=== PATIENT | female | born 1975 | race Caucasian/White ===

== ENCOUNTER 2025-03-18 12:27 | Emergency (ER) | payer OTHER, SELFPAY ==
[2025-03-18 12:34] VITALS: BP 127/78
[2025-03-18 12:56] LABS: % Basophils 0.4 % (0-2); % Eosinophils 0.3 % (0-6); % Immature Granulocytes 0.3 % (0-0.5); % Lymphocytes 25.9 % (20.5-51.1); % Monocytes 2.9 % (1.7-9.3); % Neutrophils 70.2 % (42.2-75.2); Absolute Lymphocytes 2.9 10^3/uL (1.2-3.4); Absolute Monocytes 0.3 10^3/uL (0.1-0.6); Absolute Neutrophils 7.9 10^3/uL (1.4-6.5); Hematocrit 40.8 % (37.0-47.0); Hemoglobin 14.3 g/dL (12.0-16.0); Mean Corpuscular Hgb 32.4 pg (27.0-31.0); Mean Corpuscular Volume 92.5 fL (81.0-99.0); Mean Platelet Volume 9.7 fL (7.4-10.4); Nucleated Red Blood Cells % 0 %; Platelet Count 254 10^3/uL (130-400); Red Blood Cell Count 4.41 10^6/uL (4.20-5.40); Red Cell Dist. Width 12.5 % (11.5-14.5); White Blood Cell Count 11.2 10^3/uL (4.8-10.8)
[2025-03-18 13:06] LABS: Urine Albumin Negative (Neg - Trace); Urine Bilirubin Negative (Negative); Urine Character Clear (Clear); Urine Color Yellow; Urine Glucose 1+ (Negative); Urine Ketone 1+ (Negative); Urine Leukocyte Negative (Negative); Urine Nitrite Negative (Negative); Urine Occult Blood Negative (Negative); Urine Urobilinogen Negative (Neg - 1+)
[2025-03-18 13:20] LABS: Amphetamines Negative (Negative); Barbiturates Negative (Negative); Benzodiazepines Negative (Negative); Buprenorphine Negative (Negative); Cocaine Negative (Negative); Marijuana Negative (Negative); Methadone Negative (Negative); Methamphetamines Negative (Negative); Opiates Negative (Negative); Phencyclidine Negative (Negative); Tricyclic Antidepressants Negative (Negative)
[2025-03-18 13:31] LABS: ALT (SGPT) 12 U/L (0-35); AST (SGOT) 17 U/L (14-36); Albumin 4.4 g/dl (3.5-5.0); Alkaline Phosphatase 54 U/L (38-126); Blood Urea Nitrogen 7 mg/dl (7-17); Calcium 9.3 mg/dl (8.4-10.2); Carbon Dioxide 23 mmol/L (22-30); Chloride 106 mmol/L (98-107); Glucose 192 mg/dl (70-99); Potassium 4.6 mmol/L (3.5-5.1); Sodium 136 mmol/L (135-145); Total Bilirubin 0.5 mg/dl (0.2-1.3); Total Protein 6.4 g/dl (6.3-8.2); eGFR > 60.00
--- NOTE | 2025-03-18 17:06 | ED.GENMED ---
History of Present Illness
General
Chief Complaint: Psychiatric Problem
Source: patient
Exam Limitations: altered mental status
Time Seen by Provider: 03/18/25 15:54
History of Present Illness
History of Present Illness:
49-year-old female from her residential psychiatric facility brought in by her therapist for placement into an inpatient psychiatric facility patient is apparently been acting not sleeping, here she thinks is 2021 or 2022 she states she is at
[place] tells me she is not taking her meds, denies suicidal thoughts, she is cooperative
Triage note states she has worsening catatonia
Past History
Past History
ED Past Medical History: Psychiatric
Social History
Tobacco: Smoker
Alcohol: None
Drug: None
Living: other (Facility)
Employment: Not employed
Review of Systems
Review of Systems
All Other Systems: Not applicable
Constitutional: Reports sleep disturbance; Denies fever
EENT: Reports no symptoms
Respiratory: Reports no symptoms
Cardiac: Reports no symptoms
ABD/GI: Reports no symptoms
Phy Exam
Physical Exam
Physical Exam:
Physical Exam
General: no apparent distress, not acutely ill
Neck: No jaundice
Heart: s1/s2 regular rate and rhythm, no murmur. equal radial pulses.
Lungs: no acute respiratory distress. clear bilaterally
Abdomen: Nontender
Neuro: Oriented to person unclear of the date thinks is 2022, thinks she is at [place]
Skin: no rash
Psychiatric: Flat affect cooperative
Extremities: no edema.
Course
Orders/Labs/Results
Orders:
Orders
03/18/25 12:47
Complete Blood Count/With Diff Urgent
Comprehensive Metabolic Panel Urgent
TSH Urgent
Comment: ADD ON
03/18/25 12:54
Urinalysis Reflex To Culture Urgent
Date Specimen was Collected: 03/18/25
Time Specimen was Collected: 12:41
Urine Drug Abuse Screen Urgent
Date Specimen was Collected: 03/18/25
Time Specimen was Collected: 12:41
03/18/25 16:29
Crisis Consult Urgent
Reason for Consult: needs admissoin
03/18/25 16:53
Add On- LAB Urgent
Tests Added?: tsh
Abnormal Lab Results
03/18/25 03/18/25
12:47 12:54
WBC 11.2 H 10^3/uL
(4.8-10.8)
MCH 32.4 H pg
(27.0-31.0)
Absolute Neuts (auto) 7.9 H 10^3/uL
(1.4-6.5)
Glucose 192 H mg/dl
(70-99)
Urine Ketones 1+ A
(Negative)
Urine Glucose 1+ A
(Negative)
03/18/25 12:47
03/18/25 12:47
Vital Signs
Initial and Last Documented VS:
Initial Vital Signs
Temp Pulse Resp BP Pulse Ox
98.0 F 82 16 127/78 98
03/18/25 12:34 03/18/25 12:34 03/18/25 12:34 03/18/25 12:34 03/18/25 12:34
Last Documented Vital Signs
Temp Pulse Resp BP Pulse Ox
98.0 F 82 16 127/78 98
03/18/25 12:34 03/18/25 12:34 03/18/25 12:34 03/18/25 12:34 03/18/25 12:34
MDM/Problems Addressed
Differential Diagnosis Includes:
Psychosis noncompliance electrolyte abnormality thyroid issue
MDM/Problems Addressed:
Psychiatric issue
Chronic conditions affecting care:
Psychiatric issue
Acute Exacerbation and/or Progression of Chronic Illness:
Psychiatric issues
*Pulse Oximetry
Patient hypoxic: no
Comment: 99
*Critical Care Note
Total Time (30-74mins, 75-104mins- exclusive of procedures): Not Applicable
Update Note
Update Note:
Update will check labs including thyroid crisis evaluation
Reviewed with crisis does not appear to be any issue requiring inpatient psychiatric care, she is in a controlled setting, Teri from crisis called the facility no one there will do with 302-somewhat of correction from the triage note
ED Attending Note
-
Portions of this chart may have been created with voice recognition software.� Occasional wrong word or��sound alike� substitutions may have occurred due to the inherent limitations of voice recognition software.
Discharge Plan
Departure
Patient Disposition: Home (Routine Discharge)
Date of Disposition: 03/18/25
Time of Disposition: 18:06
Patient with high blood pressure during this ER visit?: No
Condition: Good
Covid-19: Not Applicable
Discharge Problem:
Catatonia
Instructions: Depression in adults
Referrals:
Nas Jimenez DO [Family Provider, Internal Medicine]
Interventions
Interventions:
*Risk Screen - Suicide Last Done: 03/18/25 12:28
*Neglect/Abuse Screening Last Done: 03/18/25 12:34
Discharge Date and Time
Print Language: YI
== END 2025-03-18 18:38 | disposition home or self-care (01) ==
LOC: EMR 12:27
PROVIDERS: Student in an Organized Health Care Education/Training Program; EMERGENCY PHYSICIAN Emergency Medicine; FAMILY PHYSICIAN Internal Medicine Geriatric Medicine
DX: F06.1 Catatonic disorder due to known physiological condition (principal); F17.200 Nicotine dependence, unspecified, uncomplicated
CPT/HCPCS: 99283; 80053; 80306; 81003; 84443; 85025

== ENCOUNTER 2025-03-22 17:58 | Emergency (ER) | payer OTHER, SELFPAY ==
[2025-03-22 18:04] VITALS: BP 114/76
--- NOTE | 2025-03-22 18:37 | ED.GENMED ---
History of Present Illness
General
Chief Complaint: Crisis Evaluation
Time Seen by Provider: 03/22/25 18:37
History of Present Illness
History of Present Illness:
REVIEW OF OLD RECORDS
- The patient was seen here in the emergency department 03/18/2025 and on 03/20/2025 the patient was seen by crisis. She has a history of Warnicke's encephalopathy and has had a right-sided craniotomy possibly related to aneurysm in the past. At that
time, the patient denied SI/HI/self-harm. She was here with catatonia. Ultimately staff at [facility] declined to file a 302.
Note:
CHIEF COMPLAINT(S)
Confusion and possible dehydration.
HISTORY OF PRESENT ILLNESS
The patient is a 49-year-old female who presented to the emergency department with confusion and anxiety. The patient does not recall being in the hospital previously, suggesting a potential lapse in memory or awareness. According to the patient,
she is feeling more anxious since being in the hospital. She arrived at the emergency department via ambulance from a care facility called [facility], located in [place]. The initial concern for her visit was dehydration, as communicated by the
facility. There is an indication of inadequate oral intake as the patient has not been eating or drinking adequately at the facility. The patient is currently unable to accurately state the month or time of day.
At 6:40 PM I called the nurse at [facility] at [phone]. There was concern for 'very confused, not eating, refused to eat or drink, she looked dehydrated'. They also asked me to call her legal guardian, Jay,
At 6:50 PM Jay tells me that she has been deemed incapacitated by the state due to history of ruptured aneurysm, other than depression, there was no definite psychiatric illness after the aneurysm, she also has a history of alcoholism. He also
states that she has been very actively trying to get out of the [facility] but he is clear that she is not capable of being on her own.
ADDITIONAL HISTORY OBTAINED FROM SOURCES OTHER THAN THE PATIENT
Per the care facility ([facility]) where the patient resides, they called the ambulance due to concerns of dehydration. The facility reported that the patient has not been eating or drinking well.
PHYSICAL EXAM
- General: Bizarre affect
- HEENT: Moist oral mucosa
- Cardiovascular: No murmurs, normal heart rate, regular rhythm, No chest wall tenderness
- Pulmonary: No respiratory distress, breath sounds are clear and equal
- Abdomen: Soft with no peritoneal signs, no tenderness
- Neurologic: Excellent strength all extremities, no coordination deficits
- Psychiatric: Bizarre and flat affect, she attempts to get out of the room, she thinks she is at a hospital but could not identify [place], she knows it is March, she accurately stated that it was afternoon
- Extremities: Nontender, no edema, moves all extremities equally
- Skin: No rash, no lesions
PROBLEM LIST
Acute:
- Confusion
- Anxiety
- Dehydration
PLAN
- Consider laboratory tests to assess electrolytes and hydration status.
- Evaluate the patients nutritional intake and ability to hydrate at the care facility.
- Monitor anxiety levels and address accordingly.
DIFFERENTIAL DIAGNOSIS
The Differential Diagnosis includes, in no particular order and is not limited to:
- Dehydration
- Electrolyte imbalance
- Acute confusional state
- Anxiety disorder
- Medication side effects
- Sleep deprivation
- Nutritional deficiencies
- Infection (e.g., urinary tract infection, pneumonia)
- Stroke or transient ischemic attack
- Dementia or other neurocognitive disorders
RADIOLOGY
- Not indicated
EKG
- Not indicated
LABS
- White count 11.7, hemoglobin 14.7, BUN is 4, creatinine 0.6, UDS and urinalysis negative
UPDATE
- The patient initially pulled out an IV but then received IV fluids.
03/22/25 - 20:17
Blood work indicates good kidney function, though there is a slight increase in white blood cell count, (patient states 'possibly explained by congestion'). No clear sign of dehydration based on lab results. Further coordination with [place]
[facility] residential facility is underway, with legal guardian Don confirming necessity for assistance in decision-making.
Past History
Past History
ED Past Medical History: Psychiatric
Social History
Tobacco: Smoker
Alcohol: None
Drug: None
Living: other (Facility)
Employment: Not employed
Phy Exam
Physical Exam
Physical Exam:
See HPI
Course
Orders/Labs/Results
Orders:
Orders
03/22/25 18:35
Urinalysis Urgent
Date Specimen was Collected: 03/22/25
Time Specimen was Collected: 18:31
Urine Drug Abuse Screen Urgent
Date Specimen was Collected: 03/22/25
Time Specimen was Collected: 18:31
03/22/25 18:39
Crisis Consult Urgent
Reason for Consult: not eating
03/22/25 18:54
0.9% Sodium Chloride 1000 ml [Nss] 1,000 ml IV BOLUS
03/22/25 19:19
Complete Blood Count/With Diff Urgent
Comprehensive Metabolic Panel Urgent
03/22/25 19:22
Lorazepam [Ativan] 0.5 mg IV NOW STA
Abnormal Lab Results
03/22/25
19:19
WBC 11.7 H 10^3/uL
(4.8-10.8)
MCH 32.7 H pg
(27.0-31.0)
Abs Immat Gran (auto) 0.1 H 10^3/uL
(0-0.05)
Absolute Neuts (auto) 7.8 H 10^3/uL
(1.4-6.5)
BUN 4 L mg/dl
(7-17)
Calcium 10.4 H mg/dl
(8.4-10.2)
03/22/25 19:19
03/22/25 19:19
Vital Signs
Initial and Last Documented VS:
Initial Vital Signs
Temp Pulse Resp BP Pulse Ox
36.6 C 87 16 114/76 98
03/22/25 18:04 03/22/25 18:04 03/22/25 18:04 03/22/25 18:04 03/22/25 18:04
Last Documented Vital Signs
Temp Pulse Resp BP Pulse Ox
36.6 C 87 16 114/76 98
03/22/25 18:04 03/22/25 18:04 03/22/25 18:04 03/22/25 18:04 03/22/25 18:04
*Critical Care Note
Total Time (30-74mins, 75-104mins- exclusive of procedures): Not Applicable
ED Attending Note
-
Portions of this chart may have been created with voice recognition software.� Occasional wrong word or��sound alike� substitutions may have occurred due to the inherent limitations of voice recognition software.
Discharge Plan
Interventions
Interventions:
*Risk Screen - Suicide Last Done: 03/22/25 18:05
Discharge Date and Time
Print Language: SAMOAN
[2025-03-22 18:51] LABS: Urine Albumin Negative (Neg - Trace); Urine Bilirubin Negative (Negative); Urine Character Slightly Cloudy (Clear); Urine Color Yellow; Urine Glucose Negative (Negative); Urine Ketone Negative (Negative); Urine Leukocyte Negative (Negative); Urine Nitrite Negative (Negative); Urine Occult Blood Negative (Negative); Urine Urobilinogen Negative (Neg - 1+)
[2025-03-22 18:57] LABS: Amphetamines Negative (Negative); Barbiturates Negative (Negative); Benzodiazepines Negative (Negative); Buprenorphine Negative (Negative); Cocaine Negative (Negative); Marijuana Negative (Negative); Methadone Negative (Negative); Methamphetamines Negative (Negative); Opiates Negative (Negative); Phencyclidine Negative (Negative); Tricyclic Antidepressants Negative (Negative)
[2025-03-22] MEDS: NSS 1000 IV (19:18)
[2025-03-22 19:26] LABS: % Basophils 0.3 % (0-2); % Eosinophils 0.3 % (0-6); % Immature Granulocytes 0.4 % (0-0.5); % Lymphocytes 28.6 % (20.5-51.1); % Monocytes 3.9 % (1.7-9.3); % Neutrophils 66.5 % (42.2-75.2); Absolute Immature Granulocytes 0.1 10^3/uL (0-0.05); Absolute Lymphocytes 3.3 10^3/uL (1.2-3.4); Absolute Monocytes 0.5 10^3/uL (0.1-0.6); Absolute Neutrophils 7.8 10^3/uL (1.4-6.5); Hematocrit 40.5 % (37.0-47.0); Hemoglobin 14.7 g/dL (12.0-16.0); Mean Corp Hgb Conc. 36.3 g/dL (33.0-37.0); Mean Corpuscular Hgb 32.7 pg (27.0-31.0); Mean Platelet Volume 9.3 fL (7.4-10.4); Nucleated Red Blood Cells % 0 %; Platelet Count 293 10^3/uL (130-400); Red Cell Dist. Width 12.2 % (11.5-14.5); White Blood Cell Count 11.7 10^3/uL (4.8-10.8)
[2025-03-22] MEDS: ATIVAN 0.5 MG IV (19:30)
[2025-03-22 19:48] LABS: ALT (SGPT) 12 U/L (0-35); AST (SGOT) 16 U/L (14-36); Albumin 4.9 g/dl (3.5-5.0); Alkaline Phosphatase 52 U/L (38-126); Blood Urea Nitrogen 4 mg/dl (7-17); Calcium 10.4 mg/dl (8.4-10.2); Carbon Dioxide 25 mmol/L (22-30); Chloride 107 mmol/L (98-107); Glucose 97 mg/dl (70-99); Potassium 4.2 mmol/L (3.5-5.1); Sodium 141 mmol/L (135-145); Total Bilirubin 0.7 mg/dl (0.2-1.3); Total Protein 7.3 g/dl (6.3-8.2); eGFR > 60.00
[2025-03-22 21:16] VITALS: BP 130/77
== END 2025-03-22 21:21 | disposition home or self-care (01) ==
LOC: EMR 17:58
PROVIDERS: EMERGENCY PHYSICIAN Emergency Medicine; FAMILY PHYSICIAN Internal Medicine Geriatric Medicine
DX: R62.7 Adult failure to thrive (principal); F41.9 Anxiety disorder, unspecified; F17.200 Nicotine dependence, unspecified, uncomplicated
CPT/HCPCS: 99284; 96374; 96361 ×2; 80053; 80306; 81003; 85025